=== PATIENT | male | born 1955 | race Caucasian/White ===

== ENCOUNTER 2023-05-08 08:39 | Emergency (ER) | payer SELFPAY ==
[~2023-05-08] VITALS: Ht 167.6 cm; Wt 54.4 kg
[~2023-05-08 08:39] MED LIST: LIPITOR20 MG PO; LISINOPRIL2.5 MG PO; METFORMIN ER500 MG PO
[2023-05-08 09:26] LABS: BASO # 0.1 10*3/uL (0.0-0.1); EOS # 0.1 10*3/uL (0.0-0.4); EOS % 1.2 % (1.0-4.0); HEMATOCRIT 45.4 % (42.0-52.0); LYMPH # 1.5 10*3/uL (1.3-4.4); LYMPH % 21.6 % (27.0-41.0); MEAN CELL VOLUME 92.1 fl (80.0-94.0); MEAN CORPUSCULAR HGB CONC 34.8 g/dl (33.0-37.0); MONO # 0.5 10*3/uL (0.1-1.0); MONO % 7.7 % (3.0-9.0); NEUT # 4.7 10*3/uL (2.3-7.9); NEUT % 67.9 % (47.0-73.0); PLATELET COUNT AUTOMATED 179 10*3/uL (130-400); RED BLOOD COUNT 4.93 10*6/uL (4.50-5.90); RED CELL DISTRI WIDTH 11.9 % (0-14.5); WHITE BLOOD COUNT 6.9 10*3/uL (4.8-10.8)
[2023-05-08 09:41] LABS: ACT PARTIAL THROMBO TIME 24.9 SECONDS (20.0-32.1)
[2023-05-08 09:44] LABS: BILIRUBIN Negative (Negative); BLOOD Negative (Negative); CLARITY Clear (Clear); COLOR Yellow (Yellow); GLUCOSE 3+ (Negative); KETONE 2+ (Negative); LEUKO ESTERASE Negative (Negative); NITRITE Negative (Negative); PH 5.5 (4.5-8.0); SPECIFIC GRAVITY >= 1.030 (1.001-1.030); UROBILINOGEN 0.2 E.U./dl (0.0-1.0)
[2023-05-08 10:00] LABS: EPITHELIAL CELLS 0-2
[2023-05-08 10:03] LABS: ALKALINE PHOSPHATASE 66 U/L (46-116); BUN 10 mg/dl (9-23); CHLORIDE 98 mmol/L (98-107); LIPASE 129 U/L (12-53); POTASSIUM 4.1 mmol/L (3.4-5.1); SGPT/ALT 17 U/L (10-49); TOTAL PROTEIN 6.7 gm/dL (6.0-8.0)
[2023-05-08] MEDS ORDERED: PEPCID20 MG PO (12:37)
== END 2023-05-08 12:47 | disposition home or self-care (01) ==
LOC: ED 08:39
PROVIDERS: Emergency Medicine
DX: K29.00 Acute gastritis without bleeding (principal); Z88.1 Allergy status to other antibiotic agents; Z88.8 Allergy status to other drugs, medicaments and biological substances; Z88.6 Allergy status to analgesic agent; E11.9 Type 2 diabetes mellitus without complications

== ENCOUNTER 2023-10-31 09:28 | Inpatient (IN) | payer SELFPAY ==
[~2023-10-31] VITALS: Ht 167.6 cm; Wt 59.5 kg
[~2023-10-31 09:28] MED LIST changes: +PEPCID20 MG PO
[2023-10-31 09:35] VITALS: BP 106/70
[2023-10-31 10:34] LABS: ALKALINE PHOSPHATASE 89 U/L (46-116); BUN 25 mg/dl (9-23); CHLORIDE 103 mmol/L (98-107); POTASSIUM 3.6 mmol/L (3.4-5.1); SGPT/ALT 55 U/L (5-49); TOTAL PROTEIN 5.7 gm/dL (6.0-8.0)
[2023-10-31 10:49] LABS: BASO % 0.1 % (0.0-1.0); EOS % 0.1 % (1.0-4.0); HEMATOCRIT 43.7 % (42.0-52.0); LYMPH # 0.7 10*3/uL (1.3-4.4); LYMPH % 9.3 % (27.0-41.0); MEAN CELL VOLUME 97.3 fl (80.0-94.0); MEAN CORPUSCULAR HGB 31.2 pg (27.0-31.0); MEAN PLATELET VOLUME 10.9 fl (9.6-12.3); MONO # 0.6 10*3/uL (0.1-1.0); MONO % 7.6 % (3.0-9.0); NEUT # 6.5 10*3/uL (2.3-7.9); NEUT % 82.4 % (47.0-73.0); PLATELET COUNT AUTOMATED 173 10*3/uL (130-400); RED BLOOD COUNT 4.49 10*6/uL (4.50-5.90); RED CELL DISTRI WIDTH 12.3 % (0-14.5); WHITE BLOOD COUNT 7.9 10*3/uL (4.8-10.8)
[2023-10-31] MEDS ORDERED: ADVIL200 M1 PO (11:10)
[2023-10-31 21:46] VITALS: BP 97/66
[2023-11-01 01:08] VITALS: BP 105/70
[2023-11-01 06:26] LABS: ACT PARTIAL THROMBO TIME 26.5 SECONDS (20.0-32.1)
[2023-11-01 06:35] LABS: BASO % 0.2 % (0.0-1.0); EOS % 0.5 % (1.0-4.0); HEMATOCRIT 42.4 % (42.0-52.0); LYMPH # 0.8 10*3/uL (1.3-4.4); LYMPH % 14.6 % (27.0-41.0); MEAN CELL VOLUME 95.1 fl (80.0-94.0); MEAN CORPUSCULAR HGB 30.9 pg (27.0-31.0); MEAN CORPUSCULAR HGB CONC 32.5 g/dl (33.0-37.0); MEAN PLATELET VOLUME 10.9 fl (9.6-12.3); MONO # 0.5 10*3/uL (0.1-1.0); MONO % 9.2 % (3.0-9.0); NEUT # 4.3 10*3/uL (2.3-7.9); PLATELET COUNT AUTOMATED 143 10*3/uL (130-400); RED BLOOD COUNT 4.46 10*6/uL (4.50-5.90); RED CELL DISTRI WIDTH 12.4 % (0-14.5); WHITE BLOOD COUNT 5.7 10*3/uL (4.8-10.8)
[2023-11-01 06:42] VITALS: BP 104/71
[2023-11-01 06:50] LABS: ALKALINE PHOSPHATASE 80 U/L (46-116); BUN 29 mg/dl (9-23); CHLORIDE 106 mmol/L (98-107); CHOLESTEROL 189 mg/dL (<200); FREE T4 0.99 ng/dl (0.89-1.76); LDL CHOLESTEROL 74 mg/dL (9-159); POTASSIUM 3.4 mmol/L (3.4-5.1); SGPT/ALT 48 U/L (5-49); TOTAL PROTEIN 5.4 gm/dL (6.0-8.0); TRIGLYCERIDES 43 mg/dl (<150)
[2023-11-01 06:53] LABS: VITAMIN D, 25-HYDROXY 27.8 ng/mL (30-100)
[2023-11-01 11:11] VITALS: BP 96/58
[2023-11-01 13:43] VITALS: BP 98/54
[2023-11-01 15:00] VITALS: BP 98/68
[2023-11-01 20:00] VITALS: BP 97/66
[2023-11-02 01:26] VITALS: BP 98/64
[2023-11-02 04:23] LABS: BASO % 0.2 % (0.0-1.0); EOS % 0.5 % (1.0-4.0); HEMATOCRIT 39.7 % (42.0-52.0); LYMPH % 16.2 % (27.0-41.0); MEAN CELL VOLUME 96.1 fl (80.0-94.0); MEAN CORPUSCULAR HGB 31.7 pg (27.0-31.0); MEAN PLATELET VOLUME 10.7 fl (9.6-12.3); MONO # 0.6 10*3/uL (0.1-1.0); MONO % 10.2 % (3.0-9.0); NEUT # 4.3 10*3/uL (2.3-7.9); NEUT % 72.4 % (47.0-73.0); PLATELET COUNT AUTOMATED 149 10*3/uL (130-400); RED BLOOD COUNT 4.13 10*6/uL (4.50-5.90); RED CELL DISTRI WIDTH 12.4 % (0-14.5)
[2023-11-02 04:50] LABS: ALKALINE PHOSPHATASE 81 U/L (46-116); BUN 31 mg/dl (9-23); CHLORIDE 102 mmol/L (98-107); POTASSIUM 3.4 mmol/L (3.4-5.1); SGPT/ALT 51 U/L (5-49); TOTAL PROTEIN 5.3 gm/dL (6.0-8.0)
[2023-11-02 08:00] VITALS: BP 110/88
[2023-11-02 08:09] LABS: HBSAG Negative (Negative); HEP B CORE AB, IGM Negative (Negative); HEPATITIS C ANTIBODY Non Reactive (Non Reactive)
[2023-11-02 12:00] VITALS: BP 90/56
[2023-11-02 12:04] LABS: BF LYMPHOCYTES 34 %; BF MACROPHAGES 56 %; BF MESOTHELIALS 3 %; BF NEUTROPHILS 7 %
[2023-11-02 16:00] VITALS: BP 91/53
[2023-11-02 20:00] VITALS: BP 95/61
[2023-11-03] VITALS: BP 96/60
[2023-11-03 04:42] LABS: ALKALINE PHOSPHATASE 72 U/L (46-116); CHLORIDE 101 mmol/L (98-107); POTASSIUM 3.2 mmol/L (3.4-5.1); SGPT/ALT 45 U/L (5-49); TOTAL PROTEIN 5.4 gm/dL (6.0-8.0)
[2023-11-03 04:45] LABS: BUN 18 mg/dl (9-23)
[2023-11-03 08:00] VITALS: BP 105/76
[2023-11-03 09:07] LABS: ACID FAST SPEC PROCESSING Direct Inoculation (.)
[2023-11-03 12:00] VITALS: BP 92/55
[2023-11-03] MEDS ORDERED: ALDACTONE25 MG PO (14:36)
[2023-11-03 16:00] VITALS: BP 103/60
[2023-11-03 20:00] VITALS: BP 106/66; BP 97/55
[2023-11-04] VITALS: BP 88/65
[2023-11-04 08:00] VITALS: BP 92/63
[2023-11-04 12:00] VITALS: BP 91/66
[2023-11-04 16:00] VITALS: BP 96/66
[2023-11-04 20:00] VITALS: BP 108/71
[2023-11-05] VITALS: BP 117/68
[2023-11-05 08:00] VITALS: BP 104/64
[2023-11-05 08:40] LABS: BUN 15 mg/dl (9-23); CHLORIDE 99 mmol/L (98-107); POTASSIUM 3.4 mmol/L (3.4-5.1)
[2023-11-05 12:00] VITALS: BP 102/67
[2023-11-05 16:00] VITALS: BP 101/68
[2023-11-05 20:00] VITALS: BP 88/62
[2023-11-06] VITALS (7 sets, daily range): BP systolic 88–110; BP diastolic 56–68
[2023-11-06 06:42] LABS: BASO # 0.1 10*3/uL (0.0-0.1); BASO % 0.9 % (0.0-1.0); EOS % 0.5 % (1.0-4.0); HEMATOCRIT 38.7 % (42.0-52.0); LYMPH # 0.6 10*3/uL (1.3-4.4); LYMPH % 10.1 % (27.0-41.0); MEAN CELL VOLUME 94.6 fl (80.0-94.0); MEAN CORPUSCULAR HGB 31.5 pg (27.0-31.0); MEAN CORPUSCULAR HGB CONC 33.3 g/dl (33.0-37.0); MEAN PLATELET VOLUME 11.3 fl (9.6-12.3); MONO # 0.8 10*3/uL (0.1-1.0); MONO % 14.4 % (3.0-9.0); NEUT % 73.2 % (47.0-73.0); PLATELET COUNT AUTOMATED 138 10*3/uL (130-400); RED BLOOD COUNT 4.09 10*6/uL (4.50-5.90); RED CELL DISTRI WIDTH 12.3 % (0-14.5); WHITE BLOOD COUNT 5.5 10*3/uL (4.8-10.8)
[2023-11-06 06:59] LABS: BUN 15 mg/dl (9-23); CHLORIDE 98 mmol/L (98-107); POTASSIUM 3.4 mmol/L (3.4-5.1)
[2023-11-07] VITALS: BP 110/80
[2023-11-07 05:28] LABS: BUN 20 mg/dl (9-23); CHLORIDE 97 mmol/L (98-107); POTASSIUM 3.8 mmol/L (3.4-5.1)
[2023-11-07 06:29] LABS: BASO # 0.1 10*3/uL (0.0-0.1); BASO % 1.1 % (0.0-1.0); EOS % 0.4 % (1.0-4.0); HEMATOCRIT 36.6 % (42.0-52.0); LYMPH # 0.6 10*3/uL (1.3-4.4); MEAN CELL VOLUME 95.3 fl (80.0-94.0); MEAN CORPUSCULAR HGB 31.3 pg (27.0-31.0); MEAN CORPUSCULAR HGB CONC 32.8 g/dl (33.0-37.0); MONO # 0.8 10*3/uL (0.1-1.0); MONO % 14.4 % (3.0-9.0); PLATELET COUNT AUTOMATED 147 10*3/uL (130-400); RED BLOOD COUNT 3.84 10*6/uL (4.50-5.90); RED CELL DISTRI WIDTH 12.4 % (0-14.5); WHITE BLOOD COUNT 5.5 10*3/uL (4.8-10.8)
[2023-11-07 08:00] VITALS: BP 97/61
[2023-11-07 12:00] VITALS: BP 97/53
[2023-11-07] MEDS ORDERED: VITAMIN D350 MCG PO (15:07)
[2023-11-07] MEDS ORDERED: GLIPIZIDE2.5 M1 PO (15:15)
[2023-11-07 16:00] VITALS: BP 110/52
== END 2023-11-07 19:19 | disposition home or self-care (01) | DRG 433 ==
LOC: ED 09:28 → 5E 11:43 → EDHOLD 11:43 → 5E 11-01 13:56
PROVIDERS: Internal Medicine; Student in an Organized Health Care Education/Training Program; ADMIT Internal Medicine; ATTEND Internal Medicine
PROC: 0W9G3ZZ Drainage of Peritoneal Cavity, Percutaneous Approach (ICD-10-PCS; principal; 2023-11-02)
PROC: 0W9G3ZZ Drainage of Peritoneal Cavity, Percutaneous Approach (ICD-10-PCS; 2023-11-07)
DX: K74.60 Unspecified cirrhosis of liver (principal); E87.1 Hypo-osmolality and hyponatremia; R18.8 Other ascites; F17.210 Nicotine dependence, cigarettes, uncomplicated; R73.9 Hyperglycemia, unspecified; R74.01 Elevation of levels of liver transaminase levels; K29.00 Acute gastritis without bleeding; D64.9 Anemia, unspecified; E83.51 Hypocalcemia; Z71.6 Tobacco abuse counseling; Z88.6 Allergy status to analgesic agent; Z88.8 Allergy status to other drugs, medicaments and biological substances

== ENCOUNTER 2023-11-21 20:28 | Emergency (ER) | payer SELFPAY ==
[~2023-11-21] VITALS: Ht 167.6 cm; Wt 56.7 kg
[~2023-11-21 20:28] MED LIST changes: +ADVIL200 M1 PO; +ALDACTONE25 MG PO; +GLIPIZIDE2.5 M1 PO; +MIDODRINE HCL5 M1 PO; +PRISTIQ50 MG PO; +VITAMIN D350 MCG PO
[2023-11-21 21:15] LABS: BASO % 0.4 % (0.0-1.0); EOS % 0.3 % (1.0-4.0); HEMATOCRIT 39.5 % (42.0-52.0); LYMPH # 0.9 10*3/uL (1.3-4.4); MEAN CELL VOLUME 99.2 fl (80.0-94.0); MEAN CORPUSCULAR HGB 31.7 pg (27.0-31.0); MEAN CORPUSCULAR HGB CONC 31.9 g/dl (33.0-37.0); MEAN PLATELET VOLUME 10.1 fl (9.6-12.3); NEUT # 8.2 10*3/uL (2.3-7.9); NEUT % 79.7 % (47.0-73.0); PLATELET COUNT AUTOMATED 180 10*3/uL (130-400); RED BLOOD COUNT 3.98 10*6/uL (4.50-5.90); WHITE BLOOD COUNT 10.3 10*3/uL (4.8-10.8)
[2023-11-21 21:37] LABS: ALKALINE PHOSPHATASE 107 U/L (46-116); BUN 30 mg/dl (9-23); CHLORIDE 103 mmol/L (98-107); CPK 62 U/L (34-171); POTASSIUM 4.9 mmol/L (3.4-5.1); SGPT/ALT 34 U/L (5-49)
[2023-11-21 21:39] LABS: ETHYL ALCOHOL < 3.0 mg/dl (<3)
== END 2023-11-21 23:15 | disposition short-term general hospital (02) ==
LOC: ED 20:28
PROVIDERS: Emergency Medicine
DX: S01.331A Puncture wound without foreign body of right ear, initial encounter (principal); R73.9 Hyperglycemia, unspecified; D64.9 Anemia, unspecified; F17.200 Nicotine dependence, unspecified, uncomplicated; F10.10 Alcohol abuse, uncomplicated; Z88.8 Allergy status to other drugs, medicaments and biological substances; Z91.018 Allergy to other foods; Z88.6 Allergy status to analgesic agent; Z88.1 Allergy status to other antibiotic agents; Z98.890 Other specified postprocedural states; Z79.899 Other long term (current) drug therapy; Y93.89 Activity, other specified; Y92.89 Other specified places as the place of occurrence of the external cause; Y99.8 Other external cause status